=== PATIENT | female | born 1975 | race Caucasian/White ===

== ENCOUNTER → 2017-05-15 | Outpatient (CLI) | payer OTHER ==
[2017-05-15 10:04] LABS: ALANINE AMINOTRANSFERASE 34 U/L (9-52); ALBUMIN 4.7 g/dL (3.5-5.0); ALKALINE PHOSPHATASE 89 U/L (38-126); ANION GAP 9 (5-19); ASPARTATE AMINO TRANSFERASE 20 U/L (14-36); BILIRUBIN,DIRECT 0.3 mg/dL (0.0-0.4); BILIRUBIN,TOTAL 0.3 mg/dL (0.2-1.3); BLOOD UREA NITROGEN 12 mg/dL (7-20); CALCIUM 10.1 mg/dL (8.4-10.2); CARBON DIOXIDE 29 mmol/L (22-30); CHLORIDE 102 mmol/L (98-107); CHOLESTEROL 159.27 mg/dL (0-200); GLUCOSE 90 mg/dL (75-110); POTASSIUM 4.4 mmol/L (3.6-5.0); SODIUM 140.2 mmol/L (137-145); TOTAL PROTEIN 7.4 g/dL (6.3-8.2); TRIGLYCERIDES 184 mg/dL (<150)
[2017-05-15 10:15] LABS: DIRECT LDL 88 mg/dL (<100)
[2017-05-15 10:20] LABS: VLDL CHOLESTEROL 36.8 mg/dL (10-31)
== END ==
LOC: CCC 08:12
DX: I10 Essential (primary) hypertension (principal)
CPT/HCPCS: 36415; 80053; 80061; 83036; 84443

== ENCOUNTER 2017-07-18 06:56 | Emergency (ER) | payer SELFPAY ==
--- NOTE | 2017-07-18 08:35 | ER Document Report ---
ED Extremity Problem, Upper - General Chief Complaint: Arm Pain Stated Complaint: ARM PAIN Time Seen by Provider: 07/18/17 07:21 Information source: Patient TRAVEL OUTSIDE OF THE [place] IN LAST 30 DAYS: No - HPI Notes: 42-year-old female presents with left-sided arm pain. Patient describes sudden onset pain and discoloration in her left third and fourth fingers. States it turned white, then dusky in the now red and is improving. She does not carry a history of Raynaud's syndrome. Sharp, throbbing pain, now improving. Nonradiating. No history of atrial fibrillation. No trauma. No other constitutional symptoms, no systemic symptoms. No other modifying factors, no other associated symptoms, no other provocative or palliative factors. - Related Data Allergies/Adverse Reactions: No Known Allergies Allergy (Verified 07/18/17 07:00) Past Medical History - Social History Smoking Status: Current Every Day Smoker Chew tobacco use (# tins/day): No Frequency of alcohol use: None Drug Abuse: Marijuana Family History: Reviewed & Not Pertinent Patient has suicidal ideation: No Patient has homicidal ideation: No - Past Medical History Cardiac Medical History: Reports: Hx Hypertension Neurological Medical History: Reports: Hx Migraine Renal/ Medical History: Denies: Hx Peritoneal Dialysis Psychiatric Medical History: Reports: Hx Anxiety, Hx Depression, Hx Post Traumatic Stress Disorder Past Surgical History: Reports: Hx Section, Hx Tubal Ligation - Immunizations Hx Diphtheria, Pertussis, Tetanus Vaccination: No Review of Systems - Review of Systems Notes: As in the history of present illness otherwise negative Physical Exam - Vital signs Vitals: Temp Pulse Resp BP Pulse Ox 98.0 F 99 14 147/94 H 97 07/18/17 07:04 07/18/17 07:04 07/18/17 07:04 07/18/17 07:04 07/18/17 07:04 - Notes Notes: General: Well-developed HEENT: NC/AT, PERRL. No pharyngeal injection. Neck: Supple, no JVD. Chest:Clear with good air exchange. Cardiac: Regula rate and rhythm. no audible murmur. Abdomen:, Nondistended, no guarding rigidity or rebound. Nontender. Back: CVAT, unremarkable. Motor: Normal tone and power. Neurologic: Alert, nonfocal. Skin: Rashes petechiae or purpura. Extremeties: Well perfused, no significant edema. There is hyperemia of the left third and fourth finger, normal capillary refill, normal sensation. Both upper extremity pulses are symmetric and 2+ from the axillary artery distal. There is no change in pulse caliber on change in arm location or reason above the head. Course - Re-evaluation Re-evalutation: 42-year-old female who presents with the after mentioned symptoms. 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 At this point, I have obtained an ECG which shows a normal sinus rhythm without evidence of atrial fibrillation. My suspicion for dissection or vascular emergency is very low, she has no risk factors for cardiac thrombus or any evidence of murmur or any evidence to suggest endocarditis. She is advised to quit smoking, will follow up closely with her primary care physician. - Vital Signs Vital signs: Temp Pulse Resp BP Pulse Ox 98.0 F 78 16 140/95 H 98 07/18/17 07:04 07/18/17 08:53 07/18/17 08:53 07/18/17 08:53 07/18/17 08:53 - EKG Interpretation by Me EKG shows normal: Sinus rhythm, Intervals, QRS Complexes Rate: Normal Rhythm: NSR Discharge - Discharge Clinical Impression: Raynauds syndrome Qualifiers: Raynaud?s-associated gangrene presence: without gangrene Qualified Code(s): I73.00 - Raynaud's syndrome without gangrene Condition: Good Disposition: HOME, SELF-CARE Instructions: Arm Pain, Nonspecific ([facility]) Additional Instructions: Your presentation is consistent with possible Raynaud's syndrome. Please follow up closely with your primary care doctor, if this happens again and persists, return to the emergency department. Referrals: [facility] [Primary Care Provider] - Follow up as needed
[2017-07-18 08:55] VITALS: BP 140/95
--- NOTE | 2017-07-18 13:07 | EKG REPORT ---
SEVERITY:- BORDERLINE ECG - SINUS RHYTHM BORDERLINE T WAVE ABNORMALITIES : Confirmed by: Tanmay Alexander MD 18-Jul-2017 13:07:11
== END 2017-07-18 08:54 | disposition home or self-care (01) ==
LOC: ER 06:56
DX: I73.00 Raynaud's syndrome without gangrene (principal); M79.602 Pain in left arm; F17.200 Nicotine dependence, unspecified, uncomplicated; I10 Essential (primary) hypertension
CPT/HCPCS: 93005; 93010; 99283